=== PATIENT | female | born 1985 | race African-American/Black ===

== ENCOUNTER 2020-09-10 04:36 | Inpatient (IN) | payer BC ==
[2020-09-10] MEDS ORDERED: ELECTROLYTE-148 SOLN 500 ML IV SCH ×2 (06:00→06:30)
[2020-09-10 06:48] LABS: BASO % 0.1 % (0-2.0); EOS % 0.3 % (0-4.5); HEMATOCRIT 39.3 % (32.4-45.2); HEMOGLOBIN 13.4 GM/dL (10.7-15.3); MCH 32.5 pg (25.7-33.7); MCHC 34.2 g/dl (32.0-36.0); MEAN PLT VOLUME 9.5 fl (7.5-11.1); MONO % 6.1 % (3.8-10.2); NEUT % 71.5 % (42.8-82.8); PLATELET COUNT 174 K/MM3 (134-434); RBC 4.13 M/mm3 (3.60-5.2); RDW 13.4 % (11.6-15.6); WHITE BLOOD COUNT 8.4 K/mm3 (4.0-10.0)
[2020-09-10 06:56] LABS: INR 0.97 (0.83-1.09); PROTHROMBIN TIME (PATIENT) 11.7 SEC (9.7-13.0)
[2020-09-10 06:59] LABS: ACTIVATED PTT 27.4 SECONDS (25.2-36.5)
[2020-09-10 07:11] LABS: POTASSIUM 4.8 mmol/L (3.5-5.1)
[2020-09-10 07:16] LABS: BLOOD UREA NITROGEN 6.2 mg/dL (7-18); CALCIUM 8.8 mg/dL (8.5-10.1)
[2020-09-10 07:19] LABS: CREATININE 0.6 mg/dL (0.55-1.3)
[2020-09-10] MEDS ORDERED: ELECTROLYTE-148 SOLN 1,000 ML IV SCH (08:45)
[2020-09-10] MEDS ORDERED: CITRIC ACID/SODIUM CITRATE 30 ML UNIT-DOSE CUP PO ONE (08:45)
[2020-09-10 09:39] VITALS: BMI 45.3
[2020-09-10] MEDS ORDERED: PROMETHAZINE HCL 25 MG/1 ML VIAL IVPB ONE (13:45)
[2020-09-10] MEDS ORDERED: morphine SULFATE/PF 0.5 MG/ML (2cc Syringe - QUVA) ONE (13:45)
[2020-09-10] MEDS ORDERED: OXYTOCIN 20 UNITS in 0.9% NS 20 UNIT/1,000 ML INFUS.BAG IV ONE (14:53)
[2020-09-10] MEDS ORDERED: ONDANSETRON 4 MG/2 ML VIAL IVPUSH PRN (14:56)
[2020-09-10] MEDS ORDERED: WITCH HAZEL 50% (TUCKS) 40 PAD/JAR PAD TP PRN (15:02)
[2020-09-10] MEDS ORDERED: METHYLERGONOVINE MALEATE 0.2 MG/1 ML AMP IM PRN (15:02)
[2020-09-10] MEDS ORDERED: SENNOSIDES/DOCUSATE COMBO (SENNA PLUS) TABLET (UD) PO PRN (15:02)
[2020-09-10] MEDS ORDERED: IBUPROFEN 800 MG/8 ML IJ IVPB PRN (15:02)
[2020-09-10] MEDS ORDERED: oxyCODONE HCL 5 MG TABLET PO PRN (15:02)
[2020-09-10] MEDS ORDERED: OXYTOCIN 10 UNITS/ML VIAL ONE (15:06)
[2020-09-10] MEDS ORDERED: DEXAMETHASONE SOD PHOSPHATE 4 MG/1 ML VIAL ONE (15:06)
[2020-09-10] MEDS ORDERED: KETOROLAC TROMETHAMINE 30 MG/1 ML VIAL ONE (15:06)
[2020-09-10] MEDS ORDERED: PHENYLEPHRINE HCL 10 MG/1 ML SINGLE DOSE VIAL ONE (15:06)
[2020-09-10] MEDS ORDERED: GLYCOPYRROLATE 0.2 MG/1 ML VIAL ONE (15:06)
[2020-09-10] MEDS ORDERED: ceFAZolin SODIUM 1 GM VIAL ONE ×2 (15:08)
[2020-09-10] MEDS ORDERED: ePHEDrine SULFATE 50 MG/1 ML AMPULE ONE (15:12)
[2020-09-10] MEDS ORDERED: SODIUM CHLORIDE 0.9% P/F 10 ML VIAL IJ ONE (15:12)
[2020-09-10] MEDS ORDERED: SUCCINYLCHOLINE CHLORIDE 200 MG/10 ML SYRINGE ONE (15:14)
[2020-09-10] MEDS: OXYTOCIN 20 UNITS in 0.9% NS 20 UNIT/1,000 ML INFUS.BAG IV SCH (20:00)
[2020-09-10] MEDS: FERROUS SO4 325 MG TABLET (FP) PO SCH (22:00)
[2020-09-11] MEDS: IBUPROFEN 600 MG TABLET (FP) PO PRN ×2 (05:37→19:29)
[2020-09-11] MEDS: SIMETHICONE 80 MG TAB.CHEW (FP) PO PRN ×2 (05:37→19:29)
[2020-09-11 08:47] LABS: BASO % 0.2 % (0-2.0); EOS % 0.4 % (0-4.5); HEMATOCRIT 37.2 % (32.4-45.2); HEMOGLOBIN 12.8 GM/dL (10.7-15.3); LYMPH % 18.5 % (8-40); MCH 32.5 pg (25.7-33.7); MCHC 34.4 g/dl (32.0-36.0); MEAN CELL VOLUME 94.4 fl (80-96); MEAN PLT VOLUME 9.2 fl (7.5-11.1); MONO % 6.3 % (3.8-10.2); NEUT % 74.6 % (42.8-82.8); PLATELET COUNT 158 K/MM3 (134-434); RBC 3.95 M/mm3 (3.60-5.2); WHITE BLOOD COUNT 12.4 K/mm3 (4.0-10.0)
[2020-09-11] MEDS: FERROUS SO4 325 MG TABLET (FP) PO SCH ×2 (09:02→21:44)
[2020-09-11] MEDS: PRENATAL VITAMINS W/ FOLIC ACID TABLET (FP) PO SCH (09:02)
[2020-09-11] MEDS ORDERED: FLU VACCINE (FLULAVAL) PF 60 MCG/0.5 ML SYRINGE 2020-2021 IM ONE (10:00)
[2020-09-11] MEDS ORDERED: DIPHTH,PERTUSS(ACELL),TET 0.5 ML DISP.SYRIN IM ONE (10:00)
[2020-09-11] MEDS ORDERED: BISACODYL 10 MG SUPP.RECT RC PRN (15:02)
[2020-09-12] MEDS: OXYTOCIN 20 UNITS in 0.9% NS 20 UNIT/1,000 ML INFUS.BAG IV SCH (02:02)
[2020-09-12] MEDS: SIMETHICONE 80 MG TAB.CHEW (FP) PO PRN ×3 (06:11→17:15)
[2020-09-12] MEDS: IBUPROFEN 600 MG TABLET (FP) PO PRN ×3 (06:11→17:14)
[2020-09-12] MEDS: PRENATAL VITAMINS W/ FOLIC ACID TABLET (FP) PO SCH (10:58)
[2020-09-12] MEDS: FERROUS SO4 325 MG TABLET (FP) PO SCH ×2 (10:59→21:18)
[2020-09-13 08:52] LABS: BASO % 0.3 % (0-2.0); EOS % 1.4 % (0-4.5); HEMATOCRIT 38.1 % (32.4-45.2); LYMPH % 23.9 % (8-40); MCH 32.7 pg (25.7-33.7); MCHC 34.1 g/dl (32.0-36.0); MEAN CELL VOLUME 96.1 fl (80-96); MEAN PLT VOLUME 9.2 fl (7.5-11.1); MONO % 5.2 % (3.8-10.2); NEUT % 69.2 % (42.8-82.8); PLATELET COUNT 177 K/MM3 (134-434); RBC 3.96 M/mm3 (3.60-5.2); RDW 13.5 % (11.6-15.6); WHITE BLOOD COUNT 9.7 K/mm3 (4.0-10.0)
[2020-09-13] MEDS: PRENATAL VITAMINS W/ FOLIC ACID TABLET (FP) PO SCH (09:18)
[2020-09-13] MEDS: FERROUS SO4 325 MG TABLET (FP) PO SCH (09:18)
[2020-09-13] MEDS: IBUPROFEN 600 MG TABLET (FP) PO PRN (09:21)
[2020-09-13 10:30] VITALS: BP 122/75; PULSE 82; TEMP 98.2
== END 2020-09-13 12:20 | disposition home or self-care (01) | DRG 788 ==
LOC: JDEL 04:36 → JLDR 08:05 → J3W 17:04
PROVIDERS: ADMIT Obstetrics & Gynecology; ATTEND Obstetrics & Gynecology
PROC: 10D00Z1 Extraction of Products of Conception, Low, Open Approach (ICD-10-PCS; principal; 2020-09-10)
DX: O34.211 Maternal care for low transverse scar from previous cesarean delivery (principal); O99.214 Obesity complicating childbirth; E66.01 Morbid (severe) obesity due to excess calories; O99.824 Streptococcus B carrier state complicating childbirth; O77.0 Labor and delivery complicated by meconium in amniotic fluid; Z3A.39 39 weeks gestation of pregnancy; Z37.0 Single live birth
CPT/HCPCS: 36415; 80048; 85025; 85610; 85730; 86780; 86850; 86900; 86901; 88307-TC; 90715; G0008; Q2036